=== PATIENT | female | born 1945 | race American Indian/Alaskan Native ===

== ENCOUNTER 2022-03-01 07:06 | Outpatient (CLI) | payer OTHER ==
[2022-03-01] MEDS ORDERED: DIATR MEGLU/DIATRIZ SOD 30 ML SOLUTION PO ONE (08:08)
[2022-03-01] MEDS ORDERED: ASPI-1393 PO (13:33)
[2022-03-01] MEDS ORDERED: LOSA100T3 PO (13:33)
[2022-03-01] MEDS ORDERED: HYDR25TA4 PO (13:33)
[2022-03-01] MEDS ORDERED: METO25TA6 PO (13:33)
== END 2022-03-01 20:24 | disposition home or self-care (01) ==
LOC: SNM 07:06
PROVIDERS: ATTEND Colon & Rectal Surgery
DX: K76.89 Other specified diseases of liver (principal); R10.9 Unspecified abdominal pain
CPT/HCPCS: 78226; 74177; 76376; A9537; Q9967; Q9964